=== PATIENT | male | born 1955 | race African-American/Black ===

== ENCOUNTER 2022-06-21 04:39 | Emergency (ER) | payer MEDICARE, OTHER ==
[~2022-06-21] VITALS: Ht 182.9 cm; Wt 73.0 kg
[~2022-06-21 04:39] MED LIST: QUET25TA PO
[2022-06-21] MEDS ORDERED: ONDANSETRON HCL 4MG/2ML INJ IV STA (05:21)
[2022-06-21 06:13] LABS: HEMOGLOBIN. 14.2 g/dL (14.0-18.0); MEAN CORPUSCULAR HEMOGLOBIN 30.9 pg (28.0-32.0); MEAN CORPUSCULAR VOLUME 91.4 fL (80.0-94.0); MEAN PLATELET VOLUME 8.5 fl (7.4-10.4); PLATELET 184 x1000/uL (130-400); RED BLOOD CELL COUNT 4.59 mill/uL (4.7-6.1); RED CELL DISTRIBUTION WIDTH 14.4 % (11.6-14.6)
[2022-06-21 06:21] LABS: CHLORIDE 103 mEq/L (98-107)
[2022-06-21 06:22] LABS: PARTIAL THROMBOPLASTIN TIME 27.7 sec (23.4-31.0)
[2022-06-21 06:40] LABS: ETHANOL BLOOD < 10 mg/dL
[2022-06-21 06:59] LABS: PLATELET ESTIMATE NORMAL
[2022-06-21] MEDS ORDERED: LABETALOL 5MG/ML SYR 20 MG/4 ML SYRINGE IV ONE ×2 (07:15→08:45)
[2022-06-21 07:37] LABS: CLARITY URINE CLEAR (CLEAR); COLOR URINE DARK YELLOW (YELLOW); KETONES URINE TRACE (NEGATIVE); LEUKOCYTE ESTERASE URINE NEGATIVE (NEGATIVE); NITRITE URINE NEGATIVE (NEGATIVE); OCCULT BLOOD URINE 2+ (NEGATIVE); PROTEIN URINE 4+ (NEGATIVE); SPECIFIC GRAVITY URINE 1.025 (1.005-1.030)
[2022-06-21 08:45] VITALS: BP 188/103
== END 2022-06-21 09:11 | disposition short-term general hospital (02) ==
LOC: ER 04:39
DX: R41.82 Altered mental status, unspecified (principal); I10 Essential (primary) hypertension; E11.9 Type 2 diabetes mellitus without complications; Z88.8 Allergy status to other drugs, medicaments and biological substances; Z86.73 Personal history of transient ischemic attack (TIA), and cerebral infarction without residual deficits; Z20.822 Contact with and (suspected) exposure to COVID-19
CPT/HCPCS: 36415; 70450; 71045; 80053; 80307; 80320; 80329; 81003; 82140; 83605; 83690; 83880; 84443; 84484; 85025; 85610; 85730; 86850; 86900; 86901; 87040; 87426; 93005; 96374; 96375; 96376; 99285; C9803; J2405; J3490; G0480